=== PATIENT | female | born 1940 | race Caucasian/White ===

== ENCOUNTER 2017-08-20 09:09 | Outpatient (CLI) | payer MEDICARE, BC ==
[~2017-08-20 09:09] MED LIST: CYCL-1 PO; FLUO20CA39 PO; GLIM1TAB46 PO; HYDR-569 PO; LEVO75TA PO; LISI40TA4 PO; METF500T7 PO; OMEP20CA10 PO; PRIM250T48 PO; SIMV80TA2 PO
[2017-08-20 09:36] VITALS: BP 132/50
== END 2017-08-20 09:56 | disposition home or self-care (01) ==
LOC: ORTHO 09:09
PROVIDERS: ATTEND Nurse Practitioner Family
DX: M19.011 Primary osteoarthritis, right shoulder (principal); E78.00 Pure hypercholesterolemia, unspecified; I10 Essential (primary) hypertension; K21.9 Gastro-esophageal reflux disease without esophagitis; Z88.5 Allergy status to narcotic agent; Z85.3 Personal history of malignant neoplasm of breast
CPT/HCPCS: 73030

== ENCOUNTER 2018-02-07 06:59 | Emergency (ER) | payer MEDICARE, BC ==
[~2018-02-07] VITALS: Ht 162.6 cm; Wt 90.0 kg
[~2018-02-07 06:59] MED LIST changes: +HYDR-4383 PO; -HYDR-569 PO
[2018-02-07 07:02] VITALS: BP 152/80
[2018-02-07] MEDS ORDERED: normal saline 1000ML IV soln IVB ONE (07:20)
[2018-02-07] MEDS ORDERED: meclizine 12.5mg tablet PO ONE (07:25)
[2018-02-07 07:51] LABS: ALANINE AMINOTRANSFERASE 21 U/L (12-78); ALBUMIN 3.3 G/DL (3.4-5.0); ALBUMIN/GLOBULIN RATIO 1.2 (1.1-1.5); ALKALINE PHOSPHATASE 88 IU/L (46-116); ANION GAP 7 (8-16); ASPARTATE AMINO TRANSFERASE 9 U/L (10-37); BILIRUBIN,TOTAL 0.3 MG/DL (0.1-1.0); BLOOD UREA NITROGEN 25 MG/DL (7-18); CALCIUM 8.5 MG/DL (8.5-10.1); CHLORIDE 102 MMOL/L (99-107); CREATININE 1.04 MG/DL (0.40-0.90); GLUCOSE 241 MG/DL (70-104); POTASSIUM 5.1 MMOL/L (3.5-5.1); SODIUM 136 MMOL/L (135-145); TOTAL CARBON DIOXIDE 27.5 MMOL/L (24-32); TOTAL PROTEIN 6.1 G/DL (6.4-8.2); eGFR 52 ML/MIN
[2018-02-07 07:58] LABS: MAGNESIUM 1.1 MG/DL (1.5-2.4)
[2018-02-07] MEDS ORDERED: normal saline 1000ml 1,000 ML IV ONE (08:10)
[2018-02-07 08:44] LABS: BASOPHILS % (AUTO) 0.4 % (0-1); EOSINOPHILS # (AUTO) 0.3 X10'3 (0-0.9); EOSINOPHILS % (AUTO) 2.4 % (0-6); HEMATOCRIT 37.2 % (35.0-45.0); HEMOGLOBIN 12.3 g/dl (12.0-16.0); LYMPHOCYTES # (AUTO) 1.9 X10'3 (1.1-4.8); LYMPHOCYTES % (AUTO) 16.2 % (21-51); MEAN CORPUSCULAR HEMOGLOBIN 30.6 PG (27.0-31.0); MEAN CORPUSCULAR HGB CONC 33.1 % (33.0-36.5); MEAN CORPUSCULAR VOLUME 92.5 FL (78-98); MEAN PLATELET VOLUME 7.5 FL (7.4-10.4); MONOCYTES # (AUTO) 0.6 X10'3 (0-0.9); NEUTROPHILS # (AUTO) 8.8 X10'3 (1.8-7.7); PLATELET COUNT 265 X10'3 (140-440); RED BLOOD COUNT 4.02 X10'6 (4.20-5.60); RED CELL DISTRIBUTION WIDTH 14.1 % (11.5-14.5); WHITE BLOOD COUNT 11.6 X10'3 (4.5-11.0)
[2018-02-07] MEDS ORDERED: ONDA4TAB12 PO (09:06)
[2018-02-07] MEDS ORDERED: MECL12.584 PO (09:06)
== END 2018-02-07 10:26 | disposition home or self-care (01) ==
LOC: ER 06:59
DX: R42 Dizziness and giddiness (principal); R11.10 Vomiting, unspecified; E78.00 Pure hypercholesterolemia, unspecified; E11.9 Type 2 diabetes mellitus without complications; E03.9 Hypothyroidism, unspecified; K21.9 Gastro-esophageal reflux disease without esophagitis; Z90.710 Acquired absence of both cervix and uterus; Z98.890 Other specified postprocedural states; Z88.5 Allergy status to narcotic agent; Z79.84 Long term (current) use of oral hypoglycemic drugs; Z79.899 Other long term (current) drug therapy
CPT/HCPCS: 36415; 70450; 71045; 80053; 83735; 83880; 84484; 85025; 93005; 96360; 99284; J7030; J8597